=== PATIENT | female | born 1975 | race Caucasian/White ===

== ENCOUNTER → 2016-12-03 | Outpatient (CLI) | payer BC ==
[~2016-12-03] MED LIST: ACET-749 PO; MTR600X PO; NUTR-218; OXYC-57 PO; PRENTAB26 PO; RANI150T3 PO; VALA500T60 PO
== END | disposition home or self-care (01) ==
LOC: C.LAB 14:13
PROVIDERS: ATTEND Obstetrics & Gynecology
DX: O20.0 Threatened abortion (principal)

== ENCOUNTER → 2016-12-12 | Outpatient (CLI) | payer BC ==
[2016-12-12 16:37] LABS: URINE APPEARANCE CLEAR (CLEAR); URINE BILIRUBIN NEG (NEG); URINE COLOR YELLOW; URINE EPITHELIAL CELL AUTO >30 /lpf (0-5); URINE NITRITE NEG (NEG); URINE PH 5.5 (4.5-7.5); URINE SPECIFIC GRAVITY 1.027 (1.000-1.030); UROBILINOGEN NEG (NEG)
[2016-12-12 16:43] LABS: MANUAL MICROSCOPIC REQUIRED? NO; REVIEW REQ? YES
[2016-12-17 04:24] LABS: CHLAMYDIA TRACH RNA*** NOT DETECTED (NOT DETECTED); GC (NEIS GONORRHOEAE)RNA** NOT DETECTED (NOT DETECTED)
== END | disposition home or self-care (01) ==
LOC: C.LABSPEC 15:54
PROVIDERS: ATTEND Obstetrics & Gynecology
DX: O09.529 Supervision of elderly multigravida, unspecified trimester (principal); O20.0 Threatened abortion; Z3A.00 Weeks of gestation of pregnancy not specified

== ENCOUNTER → 2016-12-12 | Outpatient (CLI) | payer BC | END | disposition home or self-care (01) | LOC: C.PAPS 18:02 | PROVIDERS: ATTEND Obstetrics & Gynecology | DX: O09.529 Supervision of elderly multigravida, unspecified trimester (principal); Z3A.00 Weeks of gestation of pregnancy not specified ==

== ENCOUNTER → 2016-12-12 | Outpatient (CLI) | payer BC ==
[2016-12-12 15:43] LABS: BASO % 0.2 %; BASO ABS # 0.02 K/uL (0-0.2); COMPLETE YES; EOS % 0.5 %; HEMATOCRIT 39.1 % (37-47); IG% 0.3 %; LYMPH % 14.4 %; LYMPH ABS # 1.45 K/uL (1.2-3.4); MEAN CELL VOLUME 86.7 fL (80-100); MEAN CORPUSCULAR HEMOGLOBIN 27.9 pg (25-34); MEAN CORPUSCULAR HGB CONC 32.2 g/dl (32-36); MONO % 3.2 %; NEUT % 81.4 %; PLATELET COUNT 260 K/uL (130-400); RED BLOOD COUNT 4.51 M/uL (4.2-5.4); WHITE BLOOD COUNT 10.05 K/uL (4.8-10.8)
== END | disposition home or self-care (01) ==
LOC: C.LAB1850 14:42
PROVIDERS: ATTEND Obstetrics & Gynecology
DX: O20.0 Threatened abortion (principal); Z3A.00 Weeks of gestation of pregnancy not specified; O09.529 Supervision of elderly multigravida, unspecified trimester

== ENCOUNTER → 2017-02-10 | Outpatient (CLI) | payer BC ==
[~2017-02-10] MED LIST changes: -NUTR-218; -OXYC-57 PO; -PRENTAB26 PO; -RANI150T3 PO; -VALA500T60 PO
== END | disposition home or self-care (01) ==
LOC: C.LAB 07:52
PROVIDERS: ATTEND Obstetrics & Gynecology
DX: O09.521 Supervision of elderly multigravida, first trimester (principal); Z3A.00 Weeks of gestation of pregnancy not specified

== ENCOUNTER → 2017-05-08 | Outpatient (CLI) | payer OTHER ==
[2017-05-08 09:28] LABS: HEMATOCRIT 36.7 % (37-47)
[2017-05-08 09:32] LABS: URINE APPEARANCE CLEAR (CLEAR); URINE BILIRUBIN NEG (NEG); URINE COLOR YELLOW; URINE EPITHELIAL CELL AUTO >30 /lpf (0-5); URINE NITRITE NEG (NEG); URINE PH 8.5 (4.5-7.5); URINE SPECIFIC GRAVITY 1.017 (1.000-1.030); UROBILINOGEN NEG (NEG)
[2017-05-08 09:33] LABS: MANUAL MICROSCOPIC REQUIRED? NO; REVIEW REQ? NO
== END | disposition home or self-care (01) ==
LOC: C.LAB 08:17
PROVIDERS: ATTEND Obstetrics & Gynecology
DX: O09.523 Supervision of elderly multigravida, third trimester (principal)

== ENCOUNTER → 2017-06-24 | Outpatient (CLI) | payer OTHER | END | disposition home or self-care (01) | LOC: C.LABSPEC 10:46 | PROVIDERS: ATTEND Obstetrics & Gynecology | DX: O09.523 Supervision of elderly multigravida, third trimester (principal) ==

== ENCOUNTER 2023-10-16 23:12 | Observation (INO) ==
--- NOTE | 2023-10-16 23:56 | Emergency Department Note ---
Impression & Plan Episode of heavy vaginal bleeding, Menorrhagia ED Provider Note HISTORY OF PRESENT ILLNESS: Patient is a 48-year-old female presenting with heavy vaginal bleeding. Patient reports that her period started yesterday and she has had progressively worsening heavy bleeding. Reports that throughout the day today she has been soaking through a maxi tampon and maxi pad every hour and has had to change her close twice because she bleeds through them. She was seen by her VBA DEVELOPER for her annual exam and was started on progesterone. She took 60 mg today but the bleeding has continued. She reports she is passing very large clots. Denies lightheadedness or dizziness. Denies abdominal pain or cramping. ROS: as above PHYSICAL EXAM: Constitutional: Patient appears in no acute distress. HENT: Head: Normocephalic and atraumatic. Eyes: EOMI, PERRL Mouth/Throat: Mucous membranes moist. Neck: Trachea midline. Neck supple. Cardiovascular: RRR, No murmurs, rubs or gallops. Intact distal pulses. Pulmonary/Chest: No respiratory distress. Breath sounds clear and equal bilaterally. No wheezes or rales. Abdominal: Abdomen soft, no tenderness, rebound or guarding. Musculoskeletal: No edema, tenderness or deformity noted. Skin: Warm and dry. No rash, erythema, pallor or cyanosis Psychiatric: Appropriate mood and affect for situation. Neurological: Alert and keenly responsive. CN II-XII grossly intact, moving all extremities equally and fully. MDM: - Vitals signs stable - History obtained via patient. History as above. - Chronic conditions affecting care: None - Differential diagnoses include, but are not limited to: Coagulopathy; dysfunctional uterine bleeding; menorrhagia; anemia - Order placed for continuous cardiac monitoring. At this time, monitor showed rate of 86 bpm with normal sinus rhythm, per my interpretation. - External medical records reviewed. Gynecology visit office note dated 10/16/2023 was reviewed. Patient was started on a norethindrone acetate taper for her irregular menstruation. - Laboratory workup interpreted by myself showed normal WBC; stable hemoglobin; stable electrolytes - Patient had a transvaginal US obtained today in convenience store clerk clinic which was unremarkable. - UA negative for infection. Noted to have significant blood. - Patient went to the bathroom in the emergency department and had significant amounts of bright red blood in the toilet bowl and significant clots. - Discussed case with Evelio Barnett convenience store clerk on-call, Dr. Mann at 23:57. Discussed patient's case and her recent visit to clinic earlier today and starting on progesterone. Discussed patient's continued heavy bleeding throughout the day despite progesterone dosing. Will admit up to the L&D floor for estrogen dosing. - Patient admitted to OB service for further evaluation and management. ASSESSMENT AND PLAN: Diagnosis: Episode of heavy vaginal bleeding; menorrhagia Plan: Admit Past Med/Surg History Medical History History of COVID-19 IBS (irritable bowel syndrome) Spinal stenosis Surgical History H/O oral surgery History of section Family History Grandmother (Maternal) Breast cancer Hypertension Dyslipidemia Ovarian cancer Grandfather (Paternal) Diabetes Heart disease Myocardial infarction Grandfather (Maternal) Prostate cancer Denies family history of Colorectal cancer Social History (Updated 08/23/22 @ 09:21 by Arina Meraz LPN) Smoking Status: Never smoker Second Hand Exposure: No; Do You Dip or Chew Tobacco: No; Hx Alcohol Use: No Hx Substance Use: No Preferred Language: Wolof Communication Ability: Effective 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 Beliefs That Will Affect Care: None Current Living Situation: Spouse and Family Feels Safe at Home: Yes Assistive Devices: Contacts Allergies Allergies Allergy/AdvReac Type Severity Reaction Status Date / Time metronidazole Allergy Severe HIVES Verified 10/16/23 13:24 oxycodone AdvReac Severe "Went Verified 10/16/23 13:24 crazy"/Anxiety lactose AdvReac Mild INTOLERANCE Verified 10/16/23 13:24 Home Meds Home Medications Medication Instructions Recorded Confirmed valacyclovir 500 mg tablet 500 mg PO DAILY PRN Cold Sores 07/25/21 10/16/23 (Valtrex) cholecalciferol (vitamin D3) 25 25 mcg PO QAM 08/20/21 10/17/23 mcg (1,000 unit) chewable tablet (Vitamin D3) ferrous sulfate 325 mg (65 mg 325 mg PO QAM 08/20/21 10/16/23 iron) tablet multivitamin 1 tab PO QAM 08/20/21 10/17/23 Previous Rx's Medication Instructions Recorded norethindrone acetate 5 mg tablet 5 mg PO .COMPLEX 21 days #45 tabs 10/16/23 Results & Data (ED) Vital Signs Vital Signs - 24 hr 10/16/23 23:15 Temperature 36.6 C Temperature Source Temporal Artery Scan Pulse Rate 86 Pulse Rhythm Regular Pulse Strength Normal Respiratory Rate 18 Respiratory Effort / Characteristics Non-Labored Spontaneous Respiratory Depth Normal Respiratory Pattern Regular Blood Pressure 137/83 Blood Pressure Mean 101 Blood Pressure Position Sitting Pulse Oximetry 97 Oxygen Delivery Method Room Air Sepsis Recent Fever Within 48 Hours No Sepsis New/Unexplained Change in Mental Status N/A Sepsis Action Taken by Nursing No Action Required Laboratory Data 10/16/23 23:41 10/16/23 23:41 Lab Results 10/16/23 10/16/23 Range/Units 23:41 Unknown WBC 9.03 (4.8-10.8) K/ul RBC 4.19 L (4.20-5.40) M/uL Hgb 12.2 (12.0-16.0) g/dl Hct 37.7 (37.0-47.0) % MCV 90.0 (80.0-100.0) fL MCH 29.1 (25.0-34.0) pg MCHC 32.4 (32.0-36.0) g/dL RDW Std Deviation 41.5 (36.4-46.3) fL RDW Coeff of Hugh 12.7 (11.5-14.5) % Plt Count 246 (130-400) K/uL MPV 9.6 (9.4-12.4) fL Immature Gran % (Auto) 0.6 % Neut % (Auto) 66.9 % Lymph % (Auto) 23.0 % [place] % (Auto) 6.9 % Eos % (Auto) 2.2 % Baso % (Auto) 0.4 % Neut # (Auto) 6.04 (1.40-6.50) K/uL Lymph # (Auto) 2.08 (1.20-3.40) K/uL [place] # (Auto) 0.62 H (0.11-0.59) K/uL Eos # (Auto) 0.20 (0.00-0.50) K/uL Baso # (Auto) 0.04 (0.00-0.20) K/uL Immature Gran # (Auto) 0.05 (0.01-0.20) K/uL Sodium 137 (136-145) mmol/L Potassium 3.7 (3.5-5.1) mmol/L Chloride 105 (98-107) mmol/L Carbon Dioxide 26 (21-32) mmol/L Anion Gap 6 (3-11) BUN 18 (6-23) mg/dl Creatinine 0.88 (0.6-1.2) mg/dl Est Cr Clr Drug Dosing 91.6 ml/min Est GFR ( Amer) 90.0 ml/min Est GFR (Non-Af Amer) 77.7 ml/min BUN/Creatinine Ratio 20.5 H (10-20) Glucose 91 (70-99(Fasting)) mg/dl Calcium 9.1 (8.6-10.3) mg/dl Total Bilirubin 0.3 (0.2-1.0) mg/dl AST 13 (13-39) U/L ALT 16 (7-52) U/L Alkaline Phosphatase 81 (34-104) U/L Total Protein 6.4 (6.0-8.3) gm/dl Albumin 4.2 (3.4-5.0) gm/dl Globulin 2.2 L (2.5-4.0) gm/dl Albumin/Globulin Ratio 1.9 (0.9-2) HCG, Qual Negative (Negative) Urine Color Red Urine Appearance Cloudy A (Clear) Urine pH 6.0 (4.5-7.5) Ur Specific [place] 1.010 (1.000-1.030) Urine Protein 2+ H (Negative) Urine Glucose (UA) Negative (Negative) Urine Ketones Negative (Negative) Urine Blood 3+ H (Negative) Urine Nitrite Negative (Negative) Urine Bilirubin Negative (Negative) Urine Urobilinogen Negative (Negative) Ur Leukocyte Esterase Negative (Negative) Discharge Plan Visit Data Chief Complaint: Vaginal Bleeding Stated Complaint: HEAVY VAGINAL BLEEDING, DOC REF ED Provider: Matilde Masterson Discharge Problem: Episode of heavy vaginal bleeding, Menorrhagia Forms Stand Alone Forms: [facility] [employer] Prescriptions Prescriptions: No Action valacyclovir [Valtrex] 500 mg tablet 500 mg PO DAILY PRN (Reason: Cold Sores) norethindrone acetate 5 mg tablet 5 mg PO .COMPLEX 21 Days Qty: 45 0RF Rx Instructions: 5 mg PO 1 tablet QID x 3 days, 1 tablet TID x 4 days, 1 tablet BID x 7 days, 1 tablet daily x 7 days; multivitamin Tablet 1 tab PO QAM cholecalciferol (vitamin D3) [Vitamin D3] 25 mcg (1,000 unit) Tablet,Chewable 25 mcg PO QAM ibuprofen 600 mg tablet 600 mg PO Q8 PRN (Reason: Pain) Referrals Referrals: Simba Fernandez MD [Primary Care Provider] -
[2023-10-16 23:58] LABS: Basophils # (auto) 0.04 K/uL (0.00-0.20); Basophils % (auto) 0.4 %; Eosinophils % (auto) 2.2 %; Hematocrit (blood only) 37.7 % (37.0-47.0); Hemoglobin 12.2 g/dl (12.0-16.0); Immature Granulocytes # (auto) 0.05 K/uL (0.01-0.20); Immature Granulocytes % (auto) 0.6 %; Lymphocytes # (auto) 2.08 K/uL (1.20-3.40); Mean Corpuscular Hemoglobin 29.1 pg (25.0-34.0); Mean Corpuscular Hgb Conc 32.4 g/dL (32.0-36.0); Mean Platelet Volume 9.6 fL (9.4-12.4); Monocytes # (auto) 0.62 K/uL (0.11-0.59); Monocytes % (auto) 6.9 %; Neutrophils # (auto) 6.04 K/uL (1.40-6.50); Neutrophils % (auto) 66.9 %; Platelet Count 246 K/uL (130-400); RDW Coefficient of Variation 12.7 % (11.5-14.5); RDW Standard Deviation 41.5 fL (36.4-46.3); Red Blood Count 4.19 M/uL (4.20-5.40); White Blood Count 9.03 K/ul (4.8-10.8)
[2023-10-17 00:08] LABS: Appearance Urine Cloudy (Clear); Bilirubin Urine Negative (Negative); Blood Urine 3+ (Negative); Color Urine Red; Glucose Urine UA Negative (Negative); Ketones Urine Negative (Negative); Leukocyte Esterase Urine Negative (Negative); Nitrite Urine Negative (Negative); Protein Urine 2+ (Negative); Urobilinogen Urine Negative (Negative)
[2023-10-17 00:15] LABS: Albumin Globulin Ratio 1.9 (0.9-2); Albumin Level 4.2 gm/dl (3.4-5.0); BUN Creatinine Ratio 20.5 (10-20); Bilirubin,Total 0.3 mg/dl (0.2-1.0); Calcium 9.1 mg/dl (8.6-10.3); Creatinine Clr Calc Pharmacy 91.6 ml/min; Est GFR (Non-African American) 77.7 ml/min; Globulin 2.2 gm/dl (2.5-4.0); Potassium 3.7 mmol/L (3.5-5.1); Total Protein 6.4 gm/dl (6.0-8.3)
[2023-10-17 00:31] LABS: Pregnancy Test, Serum Negative (Negative)
[2023-10-17 00:33] LABS: INR 0.9 (0.9-1.1); Prothrombin Time 10.3 Seconds (9.0-12.0)
[2023-10-17 00:33] LABS: Epithelial Cell Urine 0-5 /lpf (0-5); RBC Urine >30 /hpf (0-4); WBC Urine 0-5 /hpf (0-5)
[2023-10-17 00:34] LABS: Bacteria Urine 1+ (Negative)
[2023-10-17] MEDS ORDERED: valACYclovir HCL 500 MG TABLET PO PRN (02:52)
[2023-10-17 03:50] LABS: Pregnancy Test, Urine Negative (Negative)
[2023-10-17] MEDS: PROMETHAZINE HCL 12.5 MG in SODIUM CHLORIDE 0.9% 50 ML IV PRN (04:43)
[2023-10-17] MEDS: LACTATED RINGER'S 1,000 ML IV SCH (04:43)
[2023-10-17] MEDS: ESTROGENS, CONJUGATED 25 MG in SYRINGE 0 ML IV SCH ×2 (04:57→11:24)
[2023-10-17 06:35] LABS: Basophils # (auto) 0.05 K/uL (0.00-0.20); Basophils % (auto) 0.7 %; Eosinophils # (auto) 0.11 K/uL (0.00-0.50); Eosinophils % (auto) 1.5 %; Hemoglobin 10.8 g/dl (12.0-16.0); Immature Granulocytes # (auto) 0.04 K/uL (0.01-0.20); Immature Granulocytes % (auto) 0.6 %; Lymphocytes # (auto) 1.25 K/uL (1.20-3.40); Lymphocytes % (auto) 17.6 %; Mean Corpuscular Hemoglobin 29.1 pg (25.0-34.0); Mean Corpuscular Hgb Conc 32.7 g/dL (32.0-36.0); Mean Corpuscular Volume 88.9 fL (80.0-100.0); Mean Platelet Volume 9.6 fL (9.4-12.4); Monocytes # (auto) 0.45 K/uL (0.11-0.59); Monocytes % (auto) 6.3 %; Neutrophils # (auto) 5.21 K/uL (1.40-6.50); Neutrophils % (auto) 73.3 %; Platelet Count 215 K/uL (130-400); RDW Coefficient of Variation 12.9 % (11.5-14.5); RDW Standard Deviation 42.1 fL (36.4-46.3); Red Blood Count 3.71 M/uL (4.20-5.40); White Blood Count 7.11 K/ul (4.8-10.8)
[2023-10-17] MEDS: ACETAMINOPHEN 325 MG TAB PO PRN (07:23)
[2023-10-17] MEDS: ONDANSETRON INJ 2 MG/ML 2 ML VIAL IV PRN (07:23)
--- NOTE | 2023-10-17 08:53 | OB/GYN Consultation ---
Date of Consultation October 17, 2023 Assessment & Plan (1) Episode of heavy vaginal bleeding: Aliyah is a 48-year-old who presents with heavy uterine bleeding acute anemia as detailed above. Heavy bleeding has continued and worsened despite starting a progesterone taper. Will admit for 24-hour course of IV Premarin. Will then plan to transfer to oral medications. Patient sees Dr. Villela as her primary ACCOUNT SERVICES COORDINATOR and he is currently evaluating OR time for a hysterectomy as definitive management. Will continue to monitor. Plan of care discussed with patient and all questions answered to the patient's satisfaction. Greater than 60 minutes was spent in direct patient care (2) Menorrhagia: (3) Acute blood loss anemia: History of Present Illness History of Present Illness Aliyah is a 48-year-old presents to the ED with worsening of vaginal bleeding. Patient reports that she has had vaginal bleeding that has been ongoing but noted that this most recent menstrual cycle was significantly worse than she has ever had previously. She was seen in ACCOUNT SERVICES COORDINATOR clinic on 10/15 and was started on a progesterone taper. She reports that she took 2 doses of the progesterone taper but noted that bleeding continued to worsen and was passing large clots. She presented to the ED due to the worsening bleeding despite being on the progesterone. In the ED she was noted to be hemodynamically stable with normal vitals noted. Hemoglobin was initially noted at 12.2. Patient is noted to have a heterogeneous bulky enlarged uterus consistent with adenomyosis. There is also a questionable endometrial polyp. A cervical polyp was removed in clinic but is unlikely contributing to current bleeding Allergies Allergy/AdvReac Type Severity Reaction Status Date / Time metronidazole Allergy Severe HIVES Verified 10/16/23 13:24 oxycodone AdvReac Severe "Went Verified 10/16/23 13:24 crazy"/Anxiety lactose AdvReac Mild INTOLERANCE Verified 10/16/23 13:24 Home Medications Medication Instructions Recorded Confirmed Type valacyclovir 500 mg tablet 500 mg PO DAILY PRN Cold Sores 07/25/21 10/17/23 History (Valtrex) cholecalciferol (vitamin D3) 25 25 mcg PO QAM 08/20/21 10/17/23 History mcg (1,000 unit) chewable tablet (Vitamin D3) multivitamin 1 tab PO QAM 08/20/21 10/17/23 History norethindrone acetate 5 mg tablet 5 mg PO .COMPLEX 21 days #45 tabs 10/16/23 10/17/23 Rx ibuprofen 600 mg tablet 600 mg PO Q8 PRN Pain 10/17/23 10/17/23 History Patient History Medical History History of COVID-19 IBS (irritable bowel syndrome) Spinal stenosis Surgical History H/O oral surgery History of section Family History Grandmother (Maternal) Breast cancer Hypertension Dyslipidemia Ovarian cancer Grandfather (Paternal) Diabetes Heart disease Myocardial infarction Grandfather (Maternal) Prostate cancer Denies family history of Colorectal cancer Social History (Updated 08/23/22 @ 09:21 by Arina Meraz LPN) Smoking Status: Never smoker Second Hand Exposure: No; Do You Dip or Chew Tobacco: No; Tobacco Cessation Education Requested by Patient: No Hx Alcohol Use: Yes Alcohol type: wine Hx Substance Use: No Preferred Language: Hungarian Communication Ability: Effective 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 Results & Data Vital Signs (Past 12 Hours) Vital Signs Temp Pulse Resp BP Pulse Ox O2 Del Method 10/16/23 23:15 36.6 C 86 18 137/83 97 Room Air PG Care Time/CCT Total # of Minutes Spent Total Time Spent with Patient: Total time spent is greater than 50% in coordination of care (as documented) at patient's floor/unit and/or counseling patient: Coding Level of Care Code 45907 OFFICE CONSULT LVL M Diagnoses Episode of heavy vaginal bleeding N93.9 Excessive menstruation at puberty N92.2 Menorrhagia type: with onset of menstrual periods Acute blood loss anemia D62 (2) Menorrhagia Menorrhagia type: with onset of menstrual periods Qualified Code(s): N92.2 - Excessive menstruation at puberty
[2023-10-17 09:17] LABS: Hematocrit (blood only) 31.3 % (37.0-47.0); Hemoglobin 10.2 g/dl (12.0-16.0)
[2023-10-17] MEDS: PROMETHAZINE HCL 25 MG in SODIUM CHLORIDE 0.9% 50 ML IV PRN (11:04)
--- NOTE | 2023-10-17 14:29 | Gynecologic Progress Note ---
Date of Service October 17, 2023 Assessment & Plan Admission and Anticipated Discharge Date Admission Date: October 17, 2023 Subjective Patient is awake in bed, notable improvement in vaginal bleeding. Still having some bleeding, but it has decreased significantly. Had a small amount of blood on pad at most recent bathroom visit. Feeling ok. Vitals stable. Will plan to give last dose of IV estrogen when it is due at 5pm, then if bleeding has resolved will plan to transition to PO estrogen over night, monitor bleeding, and then if all goes well with bleeding will DC home in AM. Will plan to switch to PO Premarin 2.5mg BID (2 x 1.25mg tablets) - with anticipated surgery on Friday. Rx for premarin and for zofran to treat estrogen- induced nausea sent to pharmacy for easier pickup this evening. Patient is in agreement with plan. If bleeding has resolved, ok for dinner after the last dose of estrogen. Results & Data Vital Signs (Past 12 Hours) Vital Signs Temp Pulse Resp BP Pulse Ox O2 Del Method 10/17/23 11:35 36.9 C 89 16 118/65 Room Air 10/17/23 08:12 36.6 C 84 16 126/83 Room Air 10/17/23 02:55 36.7 C 82 18 116/82 98 Room Air
[2023-10-17] MEDS: ESTROGENS, CONJUGATED 0.625 MG TAB PO SCH (21:15)
[2023-10-18] MEDS: SIMETHICONE 80 MG CHEW PO PRN (01:55)
--- NOTE | 2023-10-18 08:18 | Gynecologic Progress Note ---
Date of Service October 18, 2023 Assessment & Plan Admission and Anticipated Discharge Date Admission Date: October 17, 2023 Subjective Significant improvement in bleeding. Patient showed me her pad from overnight, scant dark dried blood - had not needed to change. Feeling much better. Did have some abdominal cramping - relieved with simethicone overnight. Has taken 1 dose PO Premarin last night. Last IV Premarin 5pm yesterday. Plan: DC home today. Will get Premarin PO morning dose here before discharge. Then has been in touch with [facility] in [place], who will dispense enough tabs for evening dose today, BID tomorrow, and Friday AM. Then patient has a report time from surgery office for Friday's surgery. She is comfortable with the plan. Results & Data Vital Signs (Past 12 Hours) Vital Signs Temp Pulse Resp BP Pulse Ox O2 Del Method 10/18/23 02:47 36.9 C 84 18 106/58 L 95 Room Air 10/17/23 22:55 37.1 C 84 18 98/59 L 98 Room Air
--- NOTE | 2023-10-27 22:22 | Discharge Summary ---
Date of Service October 27, 2023 Discharge Data Consultations 10/17/23 00:24 ED Decision to Admit Stat Hospital Course (1) Acute blood loss anemia: Aliyah is a 48-year-old who was admitted for heavy uterine bleeding and placed on IV estrogen. Patient was stabilized and discharged home in stable condition with plan for hysterectomy next week. (2) Menorrhagia: (3) Episode of heavy vaginal bleeding: Coding Level of Care Code 80000 IN/OBS DISCH 30 MIN/LESS Diagnoses Acute blood loss anemia D62 Excessive menstruation at puberty N92.2 Menorrhagia type: with onset of menstrual periods Episode of heavy vaginal bleeding N93.9
== END 2023-10-18 09:58 | disposition home or self-care (01) | DRG 760 ==
LOC: ED 23:12 → INTOOBSV 10-17 00:18 → 4E2 10-17 00:18